=== PATIENT | male | born 2000 | race Two or more races ===

== ENCOUNTER 2024-11-14 22:11 | Inpatient (IN) | payer OTHER ==
[2024-11-13 12:34] VITALS: BP 134/86; PULSE 89; RESP 16; TEMP 98.9; O2SAT 93
[~2024-11-14] VITALS: Ht 172.7 cm; Wt 109.5 kg
--- NOTE | 2024-11-14 22:43 | ED.PDOC ---
History of Present Illness HPI Comments 24 y/o obese male presents with c/o chest pain, generalized bodyaches, cough, congestion, and rhinorrhea, today. Patient reports recent, unprovoked onset of intermittent, left-sided chest pain after having other aforementioned symptoms for the past 2x weeks. Patient states on pain being a 5/10 in severity. He endorses on having no significant past medical or surgical history, medication or substance use, or recent injuries, strenuous activities, or stressors at time of initial assessment. Patient denies any shortness of breath, palpitations, nausea, vomiting, fever, chills, or other associated symptoms or modifiers at this time. Chief Complaint: Chest Pain Time Seen by MD: 22:20 Reviewed Notes: Nurses Notes, Medications, Allergies Allergies: Coded Allergies: NO KNOWN ALLERGIES (Unverified , 11/14/24) Information Source: Patient Mode of Arrival: Ambulatory Severity: Moderate Timing: Weeks Duration: Intermittent Prehospital treatment: None Past Medical History Past Medical History (Other): obesity Surgical History: Denies all surgeries Family History Family History: Unknown Social History Smoker: Non-Smoker Alcohol: Denies ETOH Use Drugs: Denies Drug Use Lives In: Home All Other Systems: Reviewed and Negative (Comprehensive systems review obtained and negative except for what is stated in the HPI.) Physical Exam General Appearance: No Apparent Distress, Obese HEENT: Normal ENT Inspection, Pharynx Normal, TMs Normal Neck: Full Range of Motion, Non-Tender, Normal, Normal Inspection Respiratory: Chest Non-Tender, Lungs Clear, No Accessory Muscle Use, No Respiratory Distress, Normal Breath Sounds Cardiovascular: No Edema, No JVD, No Murmur, No Gallop, Normal Peripheral Pulses, Regular Rate/Rhythm Breast Exam: Deferred Gastrointestinal: No Organomegaly, Non Tender, No Pulsatile Mass, Normal Bowel Sounds, Soft Genitalia: Deferred Pelvic: Deferred Rectal: Deferred Extremities: No calf tenderness, Normal capillary refill, Normal inspection, Normal range of motion, Non-tender, No pedal edema Musculoskeletal : Apperance: Normal Neurologic: Alert, software integration developer II-XII nml as Tested, No Motor Deficits, Normal Affect, Normal Mood, No Sensory Deficits Cerebellar Function: Normal Reflexes: Normal Skin: Dry, Normal Color, Warm Lymphatic: No Adenopathy Was a procedure done? Was a procedure done?: No EKG EKG : Pulse Rate (adult): 94 Gilbert: Normal Cardiac Rhythm: NSR Block: None Hypertrophy: None ST: Normal Differential Dx Considerations may include: NM, ACS, PE, URI, viral syndrome, PNA, costochondritis, pericarditis, gastritis, anxiety, musculoskeletal pain, among others X-Ray, Labs, Meds, VS Vital Signs Date Time Temp Pulse Resp B/P (MAP) Pulse Ox O2 Delivery O2 Flow Rate FiO2 11/14/24 22:43 94 11/14/24 22:23 100.8 86 16 137/83 (101) 97 100.8 11/14/24 22:18 94 Lab Test 11/14/24 22:25 11/14/24 22:24 Range/Units Influenza Type A Antigen Positive Negative Influenza Type B Antigen Negative Negative SARS-CoV-2 Antigen (Rapid) Negative NEGATIVE White Blood Count 6.5 4.4-10.8 10^3/uL Red Blood Count 5.10 4.5-5.90 10^6/uL Hemoglobin 15.5 13.5-17.5 g/dL Hematocrit 45.6 41.0-53.0 % Mean Corpuscular Volume 89.4 80.0-100.0 fL Mean Corpuscular Hemoglobin 30.4 28.0-32.0 pg Mean Corpuscular Hemoglobin Concent 34.0 32.0-36.0 g/dL Red Cell Distribution Width 12.6 11.8-14.3 % Platelet Count 166 140-450 10^3/uL Mean Platelet Volume 11.3 H 6.9-10.8 fL Neutrophils (%) (Auto) 77.2 37.0-80.0 % Lymphocytes (%) (Auto) 12.4 10.0-50.0 % Monocytes (%) (Auto) 9.7 0.0-12.0 % Eosinophils (%) (Auto) 0.3 0.0-7.0 % Basophils (%) (Auto) 0.4 0.0-2.0 % Neutrophils # (Auto) 5.0 1.6-8.6 10 ^3/uL Lymphocytes # (Auto) 0.8 0.4-5.4 10 ^3/uL Monocytes # (Auto) 0.6 0-1.3 10 ^3/uL Eosinophils # (Auto) 0 0-0.8 10 ^3/uL Basophils # (Auto) 0 0-0.2 10 ^3/uL Nucleated Red Blood Cells 0.1 % Sodium Level 132 L 136-145 mmol/L Potassium Level 3.7 3.5-5.1 mmol/L Chloride Level 96 L 98-107 mmol/L Carbon Dioxide Level 27 20-31 mmol/L Anion Gap 9 5-15 Blood Urea Nitrogen 9 9-23 mg/dL Creatinine 1.09 0.700-1.30 mg/dL Glomerular Filtration Rate Calc 96 >90 mL/min BUN/Creatinine Ratio 8.3 L 10.0-20.0 Serum Glucose 488 *H 74-106 mg/dL Calcium Level 10.2 8.7-10.4 mg/dL Troponin I High Sensitivity 3 L </=54 ng/L Time of 1ST Reevaluation: 22:50 Reevaluation 1ST: Unchanged Patient Education/Counseling: Diagnosis, Treatment Family Education/Counseling: No Family Present Additional Information Previous visit documents reviewed: n/a The following tests were ordered, and results were reviewed by me: CXR, Covid19/Rapid Influenza A/B tests, CBC, BMP, EKG, troponin Additional Information was gathered from interviewing the following independent historians: n/a I reviewed and agreed with the following test results read by other providers: CXR I discussed treatment and results with medical personnel and: Patient Departure 1 Departure Time of Disposition: 23:23 (Patient with new onset diabetes. We will admit patient for further workup) Impression: Primary Impression: Diabetes mellitus, new onset Additional Impressions: Acute chest pain Generalized weakness Disposition: ADMITTED INPATIENT Admit to: Med Surg Condition: Serious Critical Care Note Critical Care Time?: No Stability Stability form required: No Heart Score Heart Score: Heart Score Response (Comments) Value History Slightly Suspicious 0 EKG Normal 0 Age <45 0 Risk Factors No known risk factors 0 Troponin Normal limit 0 Total 0 I personally scribed for ROMELIA DEUTSCH MD ([email or web address]) on 11/14/24 at 22:43. Electronically submitted by Rehan Perera ([email or web address]). ROMELIA DEUTSCH MD Nov 14, 2024 22:43
[2024-11-14 22:52] LABS: Basophils # (auto) 0 10 ^3/uL (0-0.2); Basophils % (auto) 0.4 % (0.0-2.0); Eosinophils # (auto) 0 10 ^3/uL (0-0.8); Eosinophils % (auto) 0.3 % (0.0-7.0); Hematocrit 45.6 % (41.0-53.0); Hemoglobin 15.5 g/dL (13.5-17.5); Lymphocytes # (auto) 0.8 10 ^3/uL (0.4-5.4); Lymphocytes % (auto) 12.4 % (10.0-50.0); Mean Corpuscular Hemoglobin 30.4 pg (28.0-32.0); Mean Corpuscular Volume 89.4 fL (80.0-100.0); Monocytes # (auto) 0.6 10 ^3/uL (0-1.3); Monocytes % (auto) 9.7 % (0.0-12.0); Neutrophils % (auto) 77.2 % (37.0-80.0); Nucleated Red Blood Cells % 0.1 %; Platelet Count (auto) 166 10^3/uL (140-450); Red Cell Distribution Width 12.6 % (11.8-14.3); White Blood Cell 6.5 10^3/uL (4.4-10.8)
[2024-11-14 23:02] LABS: Anion Gap 9 (5-15); Carbon Dioxide 27 mmol/L (20-31); Chloride 96 mmol/L (98-107); Potassium 3.7 mmol/L (3.5-5.1); Sodium 132 mmol/L (136-145)
[2024-11-14 23:03] LABS: Calcium 10.2 mg/dL (8.7-10.4)
[2024-11-14 23:08] LABS: BUN/Creatinine Ratio 8.3 (10.0-20.0); Blood Urea Nitrogen 9 mg/dL (9-23)
[2024-11-14 23:14] LABS: Glucose 488 mg/dL (74-106)
[2024-11-14 23:16] LABS: COVID19 ANTIGEN SOFIA FIA NEGATIVE (NEGATIVE)
[2024-11-14 23:20] LABS: Rapid Influenza A Positive (Negative); Rapid Influenza B Negative (Negative)
--- NOTE | 2024-11-14 23:23 | DVH ---
CHEST RADIOGRAPH Indication: cough Technique: Single frontal view of the chest was obtained COMPARISON: None FINDINGS: Lines and Tubes: None Lungs: Clear Pleura: No effusion. No pneumothorax. Cardiomediastinal contours: Unremarkable Bones: Unremarkable IMPRESSION: No abnormality demonstrated.
[2024-11-14] MEDS: SODIUM CHLORIDE 0.9% 1,000 ML IV ONE (23:35)
[2024-11-14 23:36] VITALS: PULSE 83; RESP 20; O2SAT 93
[2024-11-15] VITALS (11 sets, daily range): BP systolic 116–134; BP diastolic 67–86; PULSE 76–93; RESP 16–20; TEMP 98.3–101.1; O2SAT 93–97
[2024-11-15] MEDS ORDERED: MORPHINE SULFATE INJ 2 MG/ml SYRG IV PRN
[2024-11-15] MEDS ORDERED: ALBUTEROL SULF 2.5 MG/0.5ML(0.5%) NEB SOLN NEB PRN
[2024-11-15] MEDS ORDERED: ONDANSETRON HCL 4 MG/2 ML VIAL IV PRN
[2024-11-15] MEDS ORDERED: guaiFENesin-DM 100/10mg/5ml SYR PO PRN
[2024-11-15] MEDS ORDERED: NITROGLYCERIN 0.4 MG SL TAB SL PRN
[2024-11-15] MEDS: ACCU-CHEK COMFORT CURVE STRIP VI SCH ×2 (00:50→16:41)
[2024-11-15] MEDS: InsuLIN REG 1unit/0.01ml Soln (100units/ml) SC SCH ×2 (00:53→17:01)
--- NOTE | 2024-11-15 01:04 | DVHHP2 ---
History of Present Illness Reason for Visit: Generalized body aches History of Present Illness 24-year-old male presents for evaluation of generalized body aches. Patient reports a two week history of having generalized body aches with associated cough, and intermittent fever. Denies abdominal pain, nausea or vomiting. He does not do have a blood sugar of greater than 400. Past Medical History Denies Past Surgical History Denies Family History Noncontributory Smoke: No ALCOHOL: none Drugs: None Lives: with Family Review of Systems Review of Systems Review of systems are currently negative otherwise addressed in HPI. Allergies: Coded Allergies: NO KNOWN ALLERGIES (Unverified , 11/14/24) Medications Current Medications Medications Dose Ordered Sig/Eliazar Route Start Time Stop Time Status Last Admin Dose Admin Nitroglycerin 0.4 mg Q5MINP PRN SL 11/15/24 00:00 Morphine Sulfate 2 mg Q30M PRN IV 11/15/24 00:00 Oseltamivir Phosphate 75 mg Q12HR PO 11/15/24 10:00 11/20/24 09:59 Albuterol 2.5 mg Q6HPRN PRN NEB 11/15/24 00:00 Guaifenesin/ Dextromethorphan 10 ml Q4HP PRN PO 11/15/24 00:00 Diagnostic Test (Pha) 1 strip IQ4HR 11/15/24 00:00 11/15/24 00:50 1 STRIP Insulin Human Regular IQ4HR SC 11/15/24 00:00 11/15/24 00:53 10 UNITS Dextrose 50 ml UD PRN IV 11/15/24 00:00 Ondansetron HCl 4 mg Q4HP PRN IV 11/15/24 00:00 Acetaminophen 650 mg Q6HP PRN PO 11/15/24 00:00 Exam Vital Signs Vital Signs Date Time Temp Pulse Resp B/P (MAP) Pulse Ox O2 Delivery O2 Flow Rate FiO2 11/15/24 00:29 94 Room Air 11/15/24 00:29 0 21 11/15/24 00:25 97.6 84 14 130/74 (92) 97.6 Exam Gen: 24-year-old male in mild distress Skin: Warm, dry, normal color and texture, no rash. HEENT: Normocephalic atraumatic, mucous membranes moist and pink. Neck: Cervical and supraclavicular nodes normal without enlargement, trachea is midline, thyroid gland is normal without masses. Pulmonary: Diminished breath sounds Cardiac: Regular rate and rhythm. No murmur Abdomen: Soft, nontender, nondistended, bowel sounds present all 4 quadrants, no guarding, no rigidity, no organomegaly. Extremities: No cyanosis, clubbing, no edema Neuro: Cranial nerves II through XII grossly intact, normal affect and speech, no focal motor deficits. Labs/Xrays ORDERING PHYSICIAN: ROMELIA DEUTSCH MD PROCEDURE(s): CXRP - CHEST PORTABLE REASON: cough ORDER NUMBER(s): [id number], ACCESSION NUMBER(s): [id number] CHEST RADIOGRAPH Indication: cough Technique: Single frontal view of the chest was obtained COMPARISON: None FINDINGS: Lines and Tubes: None Lungs: Clear Pleura: No effusion. No pneumothorax. Cardiomediastinal contours: Unremarkable Bones: Unremarkable IMPRESSION: No abnormality demonstrated. Labs Test 11/15/24 00:41 11/14/24 23:31 11/14/24 22:25 11/14/24 22:24 Range/Units POC Glucose 405 *H 70-106 mg/dl Troponin I High Sensitivity 3 L </=54 ng/L Influenza Type A Antigen Positive Negative Influenza Type B Antigen Negative Negative SARS-CoV-2 Antigen (Rapid) Negative NEGATIVE White Blood Count 6.5 4.4-10.8 10^3/uL Red Blood Count 5.10 4.5-5.90 10^6/uL Hemoglobin 15.5 13.5-17.5 g/dL Hematocrit 45.6 41.0-53.0 % Mean Corpuscular Volume 89.4 80.0-100.0 fL Mean Corpuscular Hemoglobin 30.4 28.0-32.0 pg Mean Corpuscular Hemoglobin Concent 34.0 32.0-36.0 g/dL Red Cell Distribution Width 12.6 11.8-14.3 % Platelet Count 166 140-450 10^3/uL Mean Platelet Volume 11.3 H 6.9-10.8 fL Neutrophils (%) (Auto) 77.2 37.0-80.0 % Lymphocytes (%) (Auto) 12.4 10.0-50.0 % Monocytes (%) (Auto) 9.7 0.0-12.0 % Eosinophils (%) (Auto) 0.3 0.0-7.0 % Basophils (%) (Auto) 0.4 0.0-2.0 % Neutrophils # (Auto) 5.0 1.6-8.6 10 ^3/uL Lymphocytes # (Auto) 0.8 0.4-5.4 10 ^3/uL Monocytes # (Auto) 0.6 0-1.3 10 ^3/uL Eosinophils # (Auto) 0 0-0.8 10 ^3/uL Basophils # (Auto) 0 0-0.2 10 ^3/uL Nucleated Red Blood Cells 0.1 % Sodium Level 132 L 136-145 mmol/L Potassium Level 3.7 3.5-5.1 mmol/L Chloride Level 96 L 98-107 mmol/L Carbon Dioxide Level 27 20-31 mmol/L Anion Gap 9 5-15 Blood Urea Nitrogen 9 9-23 mg/dL Creatinine 1.09 0.700-1.30 mg/dL Glomerular Filtration Rate Calc 96 >90 mL/min BUN/Creatinine Ratio 8.3 L 10.0-20.0 Serum Glucose 488 *H 74-106 mg/dL Calcium Level 10.2 8.7-10.4 mg/dL Assessment/Plan Assessment/Plan Assessment Uncontrolled diabetes mellitus, new onset Influenza Plan Admit the patient to [facility] to the hospitalist [facility] Diabetic teaching Q.4 hour Accu-Cheks with mild insulin coverage Continue treatment per orders. Plan discussed with: Patient My Orders Orders - YAMILET SEYMOUR AGACNP Procedure Category Date Status Time Admit ADMIT 11/14/24 Transmitted 23:57 Nitroglycerin PHA 11/15/24 In Process Sublingual (Ntrostat 00:00 Morphine Sulfate PHA 11/15/24 In Process Injection 00:00 Stat Ekg For Chest ARLENE 11/14/24 In Process Pain 23:57 Notify Of Changes ARLENE 11/14/24 In Process From Base 23:57 Mixing And Dispensing Supervisor For ARLENE 11/14/24 In Process 24 Hours 23:57 Emergency Dysrhythmia ARLENE 11/14/24 In Process Protocol 23:57 Rhythm Strips Once ARLENE 11/14/24 In Process Every Shift 23:57 Oxygen By Nasal RT 11/14/24 Transmitted Cannula 23:57 Consistent DIET 11/15/24 Transmitted Carb(Ccho)Diabetes Breakfast *Rn Electronic Musical Instrument Repairer REFER 11/14/24 Transmitted Referral 23:58 Oseltamivir 75mg PHA 11/15/24 In Process Capsule (Tamiflu 75mg 10:00 Albuterol Medneb PHA 11/15/24 In Process (Ventolin Medneb) 00:00 Guaifenesin-Dextromet PHA 11/15/24 In Process Liquid (Robitussin 00:00 Basic Metabolic Panel LAB 11/15/24 Logged 04:00 Glucose Blood PHA 11/15/24 In Process (Accu-Chek Comfort 00:00 Insulin R (Human) PHA 11/15/24 In Process (Insulin R) 00:00 Dextrose 50% Syringe PHA 11/15/24 In Process 00:00 Ondansetron Hcl PHA 11/15/24 In Process (Zofran) 00:00 Complete Blood Count LAB 11/15/24 Logged 04:00 Condition: Stable ARLENE 11/14/24 In Process 23:58 Acetaminophen Tablet PHA 11/15/24 In Process (Tylenol Tablet) 00:00 Bedrest With Bathroom ARLENE 11/14/24 In Process Privileg 23:58 Hemoglobin A1c LAB 11/15/24 Logged 00:56 Date of Service: Nov 14, 2024 Billing Provider: YAMILET SEYMOUR Common Visit Codes: [id number] INP/OBS CARE (HIGH) YAMILET SEYMOUR Nov 15, 2024 01:04
[2024-11-15 05:17] LABS: Basophils # (auto) 0 10 ^3/uL (0-0.2); Basophils % (auto) 0.1 % (0.0-2.0); Eosinophils # (auto) 0 10 ^3/uL (0-0.8); Eosinophils % (auto) 0.1 % (0.0-7.0); Hematocrit 41.6 % (41.0-53.0); Hemoglobin 14.4 g/dL (13.5-17.5); Lymphocytes % (auto) 16.4 % (10.0-50.0); Mean Corpuscular Hemoglobin 30.9 pg (28.0-32.0); Mean Corpuscular Hgb Conc. 34.5 g/dL (32.0-36.0); Mean Corpuscular Volume 89.6 fL (80.0-100.0); Monocytes # (auto) 0.8 10 ^3/uL (0-1.3); Monocytes % (auto) 12.6 % (0.0-12.0); Neutrophils # (auto) 4.5 10 ^3/uL (1.6-8.6); Neutrophils % (auto) 70.8 % (37.0-80.0); Nucleated Red Blood Cells % 0.1 %; Platelet Count (auto) 165 10^3/uL (140-450); Red Blood Cells 4.65 10^6/uL (4.5-5.90); White Blood Cell 6.3 10^3/uL (4.4-10.8)
[2024-11-15 05:18] LABS: Chloride 101 mmol/L (98-107); Potassium 3.8 mmol/L (3.5-5.1)
[2024-11-15 05:19] LABS: Anion Gap 8 (5-15); Calcium 9.5 mg/dL (8.7-10.4); Carbon Dioxide 27 mmol/L (20-31)
[2024-11-15 05:22] LABS: Sodium 136 mmol/L (136-145)
[2024-11-15 05:24] LABS: BUN/Creatinine Ratio 8.5 (10.0-20.0)
[2024-11-15 05:26] LABS: Blood Urea Nitrogen 8 mg/dL (9-23); Glucose 298 mg/dL (74-106)
--- NOTE | 2024-11-15 07:06 | ECG ---
[facility] Test Date: 2024-11-14 Test Time: 23:12:02 Pat Name: SHERIN DUBOSE Department: ED Room: [facility] Gender: M Mine Promotor: VETO : 2000 Requested By: EMERGENCY EMERGENCY Order Number: [id number] Reading MD: Measurements Intervals [place] Rate: 98 P: 84 NC: 147 QRS: 3 QRSD: 107 T: 2 QT: 328 QTc: 419 Interpretive Statements Sinus rhythm ST elev, probable normal early repol pattern Please click the below link to view image of tracing.
[2024-11-15] MEDS: OSELTAMIVIR 75 MG CAP PO SCH (11:00)
--- NOTE | 2024-11-15 13:17 | ECG ---
[facility] Test Date: 2024-11-14 Test Time: 22:18:38 Pat Name: SHERIN DUBOSE Department: ER Room: 0236 Gender: M Paper Mill Manager: ELISEO : 2000 Requested By: EMERGENCY EMERGENCY Order Number: [id number] Reading MD: Measurements Intervals [place] Rate: 94 P: 77 IN: 150 QRS: 1 QRSD: 110 T: 5 QT: 341 QTc: 427 Interpretive Statements Sinus rhythm ST elev, probable normal early repol pattern Please click the below link to view image of tracing.
[2024-11-15 13:56] LABS: Triglycerides 80 mg/dL (< 150)
[2024-11-15 13:58] LABS: Cholesterol 188 mg/dL (< 200); HDL Cholesterol 44 mg/dL (40-59)
--- NOTE | 2024-11-15 13:58 | DVHPN2 ---
Subjective Patient reports that his symptoms have improved. Reviewed: Care Plan, H&P, Labs, Medications Changes from previous H/P or p: No Changes General: Per HPI Objective Vitals Vital Signs Date Time Temp Pulse Resp B/P (MAP) Pulse Ox O2 Delivery O2 Flow Rate FiO2 11/15/24 13:00 98.9 89 20 134/86 (102) 93 98.9 11/15/24 10:00 Room Air* 0 21 Intake/Output Intake and Output 11/15/24 07:00 Intake Total 1000 ml Balance 1000 ml Intake IV Total 1000 ml General Appearance: Alert, Oriented X3, Cooperative, mild distress HEENT: Atraumatic, PERRLA Lungs: Clear to auscultation, Normal air movement Cardiovascular: Normal S1, Normal S2 Abdomen: Normal bowel sounds, Soft, No tenderness, No hepatospenomegaly Genitourinary: No Apparent Abnormalities Musculoskeletal: Normal sensory function, Normal motor function Extremities: No clubbing, No cyanosis, No edema, Normal pulses, No tenderness/swelling Neuro: Normal gait, Normal speech Skin: Dry, Intact Psych/Mental Status: Mental status NL, Mood NL Medications Current Medications Medications Dose Ordered Sig/Eliazar Route Start Time Stop Time Status Last Admin Dose Admin Nitroglycerin 0.4 mg Q5MINP PRN SL 11/15/24 00:00 Morphine Sulfate 2 mg Q30M PRN IV 11/15/24 00:00 Oseltamivir Phosphate 75 mg Q12HR PO 11/15/24 10:00 11/20/24 09:59 11/15/24 11:00 75 MG Albuterol 2.5 mg Q6HPRN PRN NEB 11/15/24 00:00 Guaifenesin/ Dextromethorphan 10 ml Q4HP PRN PO 11/15/24 00:00 Diagnostic Test (Pha) 1 strip IQ4HR 11/15/24 00:00 11/15/24 12:01 1 STRIP Insulin Human Regular IQ4HR SC 11/15/24 00:00 11/15/24 12:01 6 UNITS Dextrose 50 ml UD PRN IV 11/15/24 00:00 Ondansetron HCl 4 mg Q4HP PRN IV 11/15/24 00:00 Acetaminophen 650 mg Q6HP PRN PO 11/15/24 00:00 Metformin HCl 500 mg BIDWM PO 11/15/24 18:00 Laboratory Results Laboratory Tests 11/15/24 05:00 Chemistry Test 11/14/24 22:24 11/15/24 05:00 Calcium Level 10.2 mg/dL (8.7-10.4) 9.5 mg/dL (8.7-10.4) Lipid panel Test 11/15/24 05:00 Cholesterol Level Pending HDL Cholesterol Pending Triglycerides Level Pending HgA1c, TSH Test 11/14/24 22:24 Hemoglobin A1c 13.6 % A1C (<5.7) H Labs and/or images reviewed: Labs reviewed by me, Image(s) reviewed by me Assessment/Plan Assessment/Plan Impression: -influenza A -obesity -hyperglycemia -new diagnosis of DM type 2 Plan: -diabetic education by nursing staff as well as dietitian -regular insulin sliding scale -start metformin 500 mg p.o. b.i.d. -continue Tamiflu -DC planning for tomorrow Total time spent with patient discussing and formulating plan of care: 35 minutes. This medical document was created using an electronic medical record system with Yelago dictation system. Although this document has been carefully reviewed, there may still be some phonetic and typographical errors. These areas are purely typographical due to imperfections of the software programs, and do not reflect any compromise in the patient's medical care. Plan discussed with: Patient, Other (RN) My Orders Orders - BONIFACIO CHAPMAN NP Procedure Category Date Status Time Lipid Panel LAB 11/15/24 In Process 13:06 Metformin PHA 11/15/24 In Process Hydrochloride 18:00 Glucose Blood PHA 11/15/24 Verified (Accu-Chek Comfort 17:00 Mild Sliding Scale PHA 11/15/24 Verified 17:00 Date of Service: Nov 15, 2024 Billing Provider: BONIFACIO CHAPMAN NP Common Visit Codes: [id number] INP/OBS CARE(HIGH) BONIFACIO CHAPMAN NP Nov 15, 2024 13:58
[2024-11-15] MEDS ORDERED: DEXTROSE (50%) 50ML SYRG IV PRN ×2 (14:00)
[2024-11-15 14:01] LABS: LDL Cholesterol 136 mg/dL (< 100)
[2024-11-15] MEDS: metFORMIN HYDROCHLORIDE 500 MG TAB PO SCH (17:01)
[2024-11-15 20:13] LABS: Urine Bacteria None Seen /hpf (None Seen)
[2024-11-15 20:26] LABS: Urine Blood Negative /uL (Negative); Urine Budding Yeast OCCASIONAL /hpf (None Seen); Urine Clarity Clear (Clear); Urine Color Yellow (Yellow); Urine Protein, UAD Negative (Negative); Urine Specific Gravity 1.046 (1.001-1.035); Urine Squamous Epithelial Cell FEW /hpf (<5); Urine Urobilinogen Normal (Negative); Urine WBC 1 /HPF (0-3); Urine pH 5.5 (5.0-9.0)
[2024-11-15] MEDS: ACETAMINOPHEN 325 MG TAB PO PRN (21:53)
[2024-11-16 01:00] VITALS: BP 136/76; PULSE 74; RESP 18; TEMP 98.5; O2SAT 96
[2024-11-16 05:00] VITALS: BP 132/76; PULSE 64; RESP 18; TEMP 98.5; O2SAT 96
[2024-11-16 08:14] VITALS: O2SAT 96
[2024-11-16 09:00] VITALS: BP 122/88; PULSE 94; RESP 17; TEMP 98.6; O2SAT 94
[2024-11-16] MEDS ORDERED: BLOO1KIT60 XX (12:56)
[2024-11-16] MEDS ORDERED: METF-370 PO (12:56)
[2024-11-16] MEDS ORDERED: LANC-347 XX (12:56)
[2024-11-16] MEDS ORDERED: TAMIFLU PO (12:59)
[2024-11-16 13:00] VITALS: BP 118/70; PULSE 76; RESP 17; TEMP 98.7; O2SAT 95
--- NOTE | 2024-11-16 13:47 | DVHDS2 ---
Discharge Summary Date of Admission Nov 14, 2024 at 23:57 Date of Discharge: Nov 16, 2024 Admitting Diagnosis New onset diabetes mellitus with hyperglycemia Labs/Diagnostic Data: Laboratory Results Test 11/16/24 10:50 11/15/24 12:05 11/15/24 05:00 11/14/24 23:31 POC Glucose 252 mg/dl (70-106) Urine Color Yellow (Yellow) Urine Clarity Clear (Clear) Urine pH 5.5 (5.0-9.0) Urine Specific [place] 1.046 (1.001-1.035) Urine Protein Negative (Negative) Urine Ketones 2+ (Negative) Urine Blood Negative /uL (Negative) Urine Nitrite Negative (Negative) Urine Bilirubin Negative (Negative) Urine Urobilinogen Normal mg/dL (Negative) Urine Leukocyte Esterase Negative /uL (Negative) Urine RBC 1 /hpf (0 - 3) Urine Microscopic WBC 1 /HPF (0-3) Urine Squamous Epithelial Cells Few /hpf (<5) Urine Bacteria None seen /hpf (None Seen) Urine Yeast (Budding) Occasional /hpf (None Urine Glucose 4+ mg/dL (Normal) White Blood Count 6.3 10^3/uL (4.4-10.8) Red Blood Count 4.65 10^6/uL (4.5-5.90) Hemoglobin 14.4 g/dL (13.5-17.5) Hematocrit 41.6 % (41.0-53.0) Mean Corpuscular Volume 89.6 fL (80.0-100.0) Mean Corpuscular Hemoglobin 30.9 pg (28.0-32.0) Mean Corpuscular Hemoglobin Concent 34.5 g/dL (32.0-36.0) Red Cell Distribution Width 13.0 % (11.8-14.3) Platelet Count 165 10^3/uL (140-450) Mean Platelet Volume 11.0 fL (6.9-10.8) Neutrophils (%) (Auto) 70.8 % (37.0-80.0) Lymphocytes (%) (Auto) 16.4 % (10.0-50.0) Monocytes (%) (Auto) 12.6 % (0.0-12.0) Eosinophils (%) (Auto) 0.1 % (0.0-7.0) Basophils (%) (Auto) 0.1 % (0.0-2.0) Neutrophils # (Auto) 4.5 10 ^3/uL (1.6-8.6) Lymphocytes # (Auto) 1.0 10 ^3/uL (0.4-5.4) Monocytes # (Auto) 0.8 10 ^3/uL (0-1.3) Eosinophils # (Auto) 0 10 ^3/uL (0-0.8) Basophils # (Auto) 0 10 ^3/uL (0-0.2) Nucleated Red Blood Cells 0.1 % Sodium Level 136 mmol/L (136-145) Potassium Level 3.8 mmol/L (3.5-5.1) Chloride Level 101 mmol/L (98-107) Carbon Dioxide Level 27 mmol/L (20-31) Anion Gap 8 (5-15) Blood Urea Nitrogen 8 mg/dL (9-23) Creatinine 0.94 mg/dL (0.700-1.30) Glomerular Filtration Rate Calc 115 mL/min (>90) BUN/Creatinine Ratio 8.5 (10.0-20.0) Serum Glucose 298 mg/dL (74-106) Calcium Level 9.5 mg/dL (8.7-10.4) Triglycerides Level 80 mg/dL (< 150) Cholesterol Level 188 mg/dL (< 200) LDL Cholesterol 136 mg/dL (< 100) HDL Cholesterol 44 mg/dL (40-59) Troponin I High Sensitivity 3 ng/L (</=54) Test 11/14/24 22:25 11/14/24 22:24 Influenza Type A Antigen Positive (Negative) Influenza Type B Antigen Negative (Negative) SARS-CoV-2 Antigen (Rapid) Negative (NEGATIVE) Hemoglobin A1c 13.6 % A1C (<5.7) Other Laboratory Tests 11/15/24 05:00 Brief Hx & Hospital Course: History of Present Illness 24-year-old male presents for evaluation of generalized body aches. Patient reports a two week history of having generalized body aches with associated cough, and intermittent fever. Denies abdominal pain, nausea or vomiting. He does not do have a blood sugar of greater than 400. Course of hospitalization: Patient was treated with IV hydration, regular insulin sliding scale, as well as introduction of metformin 500 mg p.o. b.i.d.. Patient was blood sugars have improved. Patient was started on Tamiflu given positive influenza day. Patient was without oxygen requirements while in the hospital. Chest x-ray negative for any type of pneumonia. Patient will be discharged home after receiving diabetic education, as well as being continued with metformin 500 mg p.o. b.i.d.. He was instructed to check his blood sugars twice a day for which the nurse will instructed the patient on how to do so. Patient will keep a log and follow up with the discharge Clinic in one week. He is agreeable with discharge plan. All questions answered. Physical examination General: Alert and Oriented x3. No acute distress. Well-nourished. Obese Eyes: EOMI. Anicteric. HENT: Moist mucous membranes. Lungs: Clear to auscultation bilaterally. No accessory muscle use. Cardiovascular: Regular rate and rhythm. No murmur. No JVD. Abdomen: Soft, non-tender and non-distended. No palpable masses. Extremities: No edema. Non-tender. Skin: No rashes or lesions. Warm. Neurologic: No focal neurological deficits. CN II-XII grossly intact, but not individually tested. Psychiatric: Cooperative. Appropriate mood and affect. Total time spent with patient discussing and formulating plan of care: 35 minutes. This medical document was created using an electronic medical record system with [employer] dictation system. Although this document has been carefully reviewed, there may still be some phonetic and typographical errors. These areas are purely typographical due to imperfections of the software programs, and do not reflect any compromise in the patient's medical care. Condition at Discharge: Fair Final Diagnosis/Problems List Influenza A Hyperglycemia with new diagnosis of diabetes mellitus type 2 Discharge Disposition: Home Discharge Instruct/Medications Diet: Consistent carbohydrate Activity: No Restrictions, As Tolerated Follow Up/Referral: Discharge Clinic in one week Medications: Tamiflu 75 mg p.o. b.i.d. for additional four days Metformin 500 mg p.o. b.i.d. Check blood sugars twice a day 36 Discharge Statement: "Patient was advised to return to the ER or call 911 if any headaches, dizziness, shortness of breath, chest pain, abdominal pain, bleeding, fevers, or worsening of medical condition. Patient was counseled about treatment plan, medications, possible side effects, patientverbalized understanding. All questions were answered to the best of my ability. This discharge took greater then 30 minutes in planning, reviewing documentation, counseling the patient, and discussing with other team members." ASSESSMENT ASSESSMENT Assessment Influenza A Hyperglycemia with new diagnosis of diabetes mellitus type 2 Date of Service: Nov 16, 2024 Billing Provider: BONIFACIO CHAPMAN NP Common Visit Codes: [id number] DISCH DAY >30min BONIFACIO CHAPMAN NP Nov 16, 2024 13:47
[2024-11-16 16:16] VITALS: BP 118/70; PULSE 76; RESP 17; TEMP 98.7; O2SAT 95
== END 2024-11-16 17:30 | disposition home or self-care (01) | DRG 195 ==
LOC: ER 22:11 → OVERFLOW 23:57 → EAST 11-15 12:16
PROVIDERS: ADMIT Nurse Practitioner Acute Care; ATTEND Nurse Practitioner Acute Care
DX: J10.1 Influenza due to other identified influenza virus with other respiratory manifestations (principal); E11.65 Type 2 diabetes mellitus with hyperglycemia; E66.9 Obesity, unspecified; Z20.822 Contact with and (suspected) exposure to COVID-19; Z68.36 Body mass index [BMI] 36.0-36.9, adult
CPT/HCPCS: 36415; 71045; 80048; 80061; 81001; 82962; 83036; 84484; 85025; 87426; 87804; 93005; 96360; G0378; J1815

== ENCOUNTER 2024-11-23 07:52 | Emergency (ER) | payer OTHER ==
[~2024-11-23] VITALS: Ht 172.7 cm; Wt 76.9 kg
[~2024-11-23 07:52] MED LIST: BLOO1KIT60 XX; LANC-347 XX; METF-370 PO; TAMIFLU PO
[2024-11-23 09:03] LABS: Basophils # (auto) 0 10 ^3/uL (0-0.2); Basophils % (auto) 0.4 % (0.0-2.0); Eosinophils # (auto) 0.1 10 ^3/uL (0-0.8); Eosinophils % (auto) 1.2 % (0.0-7.0); Hematocrit 45.5 % (41.0-53.0); Lymphocytes # (auto) 2.2 10 ^3/uL (0.4-5.4); Lymphocytes % (auto) 24.1 % (10.0-50.0); Mean Corpuscular Hemoglobin 31.4 pg (28.0-32.0); Mean Corpuscular Hgb Conc. 35.1 g/dL (32.0-36.0); Mean Corpuscular Volume 89.4 fL (80.0-100.0); Monocytes # (auto) 0.5 10 ^3/uL (0-1.3); Neutrophils # (auto) 6.2 10 ^3/uL (1.6-8.6); Neutrophils % (auto) 68.3 % (37.0-80.0); Platelet Count (auto) 246 10^3/uL (140-450); Red Blood Cells 5.09 10^6/uL (4.5-5.90); Red Cell Distribution Width 12.6 % (11.8-14.3); White Blood Cell 9.1 10^3/uL (4.4-10.8)
[2024-11-23 09:13] LABS: Chloride 99 mmol/L (98-107); Potassium 4.1 mmol/L (3.5-5.1)
[2024-11-23 09:14] LABS: Anion Gap 8 (5-15); Carbon Dioxide 26 mmol/L (20-31); Sodium 133 mmol/L (136-145)
--- NOTE | 2024-11-23 09:14 | ED.PDOC ---
History of Present Illness HPI Comments 24 year old male presents to the ED with a chief complaint of anxiety onset 3 days. Patient states he has been taking Metformin medication for his diabetes, noticed he gets anxious shortly after taking medication. Since he stopped taking medication 3 days ago, he wakes up experiencing dizziness, headache, which has resolved at this time. PMHx DM. Denies any nausea, vomiting, diarrhea, chest pain, shortness of breath, fevers, chills. No other symptoms or modifying factors present at this time. Chief Complaint: Hyperglycemia Time Seen by MD: 09:02 Primary Care Provider: none Reviewed Notes: Medications, Allergies Allergies: Coded Allergies: NO KNOWN ALLERGIES (Unverified , 11/14/24) Home Meds Active Scripts Oseltamivir Phosphate (Tamiflu) 75 Mg Cap, 75 MG PO BID for 4 Days, #8 CAP Prov:BONIFACIO CHAPMAN NP 11/16/24 Blood Glucose Monitoring Suppl (D-Care Glucometer Kit/Glu W/Device) 1 Kit Kit, KIT XX BID, #1 Prov:BONIFACIO CHAPMAN NP 11/16/24 Lancets (Freestyle Lancets) Lancets Mis, BOX XX BID, #1 Prov:BONIFACIO CHAPMAN SPECIAL DELIVERY WORKER 11/16/24 Metformin Hydrochloride (Metformin Hcl) 500 Mg Tab, 1 TAB PO BID for 30 Days, #60 TAB 3 Refills Prov:BONIFACIO CHAPMAN NP 11/16/24 Information Source: Patient Mode of Arrival: Ambulatory Severity: Moderate Timing: Days Duration: Since onset Prehospital treatment: None Past Medical History PAST MEDICAL HISTORY: DM Surgical History: Denies all surgeries Family History Family History: Unknown Social History Smoker: Non-Smoker Alcohol: Denies ETOH Use Drugs: Denies Drug Use Lives In: Home Constitutional: denies: chills, diaphoresis, fatigue, fever, malaise, sweats, weakness, others EENTM: denies: blurred vision, double vision, ear bleeding, ear discharge, ear drainage, ear pain, ear ringing, eye pain, eye redness, hearing loss, mouth pain, mouth swelling, nasal discharge, nose bleeding, nose congestion, nose pain, photophobia, tearing, throat pain, throat swelling, voice changes, others Respiratory: denies: cough, hemoptysis, orthopnea, SOB at rest, shortness of b reath, SOB with excertion, stridor, wheezing, others Cardiovascular: denies: chest pain, dizzy spells, diaphoresis, Dyspnea on exertion, edema, irregular heart beat, left arm pain, lightheadedness, palpitations, PND, syncope, others Gastrointestinal: denies: abdomen distended, abdominal pain, blood streaked bowels, constipated, diarrhea, dysphagia, difficulty swallowing, hematemesis, melena, nausea, poor appetite, poor fluid intake, rectal bleeding, rectal pain, vomiting, others Genitourinary: denies: burning, dysuria, flank pain, frequency, hematuria, incontinence, penile discharge, penile sore, pain, testicle pain, testicle swelling, urgency, others Neurological: reports: dizziness, headache; denies: fainting, left sided numbness, left sided weakness, numbness, paresthesia, pre-existing deficit, right sided numbness, right sided weakness, seizure, speech problems, tingling, tremors, weakness, others Musculoskeletal: denies: back pain, gout, joint pain, joint swelling, muscle pain, muscle stiffness, neck pain, others Integumetry: denies: bruises, change in color, change in hair/nails, dryness, laceration, lesions, lumps, rash, wounds, others Allergic/Immunocompromised: denies: Difficulty Healing, Frequent Infections, Hives, Itching, others Hematologic/Lymphatic: denies: anemia, blood clots, easy bleeding, easy bruising, swollen glands, others Endocrine: denies: excessive hunger, excessive sweating, excessive thirst, excessive urination, flushing, intolerance to cold, intolerance to heat, unexplained weight gain, unexplained weight loss, others Psychiatric: reports: anxiety; denies: bipolar disorder, depression, hopeless, panic disorder, schizophrenia, sleepless, suicidal, others All Other Systems: Reviewed and Negative Physical Exam General Appearance: No Apparent Distress, Normal HEENT: Normal ENT Inspection, Pharynx Normal, TMs Normal Neck: Full Range of Motion, Non-Tender, Normal, Normal Inspection Respiratory: Chest Non-Tender, Lungs Clear, No Accessory Muscle Use, No Respiratory Distress, Normal Breath Sounds Cardiovascular: No Edema, No JVD, No Murmur, No Gallop, Normal Peripheral Pulses, Regular Rate/Rhythm Breast Exam: Deferred Gastrointestinal: No Organomegaly, Non Tender, No Pulsatile Mass, Normal Bowel Sounds, Soft Genitalia: Deferred Pelvic: Deferred Rectal: Deferred Extremities: No calf tenderness, Normal capillary refill, Normal inspection, Normal range of motion, Non-tender, No pedal edema Musculoskeletal : Apperance: Normal Neurologic: Alert, groundskeeping yardman II-XII nml as Tested, No Motor Deficits, Normal Affect, Normal Mood, No Sensory Deficits Cerebellar Function: Normal Reflexes: Normal Skin: Dry, Normal Color, Warm Lymphatic: No Adenopathy Was a procedure done? Was a procedure done?: No Differential Dx Considerations may include: Anxiety, depression, electrolyte abnormalities X-Ray, Labs, Meds, VS Vital Signs Date Time Temp Pulse Resp B/P (MAP) Pulse Ox O2 Delivery O2 Flow Rate FiO2 11/23/24 09:26 60 17 96 Room Air 11/23/24 09:26 98.1 60 17 117/74 (88) 96 98.1 11/23/24 08:19 97.6 64 19 139/86 (103) 99 97.6 Lab Test 11/23/24 10:30 11/23/24 08:43 11/23/24 08:18 Range/Units Urine Color Light-yellow Yellow Urine Clarity Clear Clear Urine pH 5.5 5.0-9.0 Urine Specific [place] 1.040 H 1.001-1.035 Urine Protein Negative Negative Urine Ketones Negative Negative Urine Blood Negative Negative /uL Urine Nitrite Negative Negative Urine Bilirubin Negative Negative Urine Urobilinogen Normal Negative mg/dL Urine Leukocyte Esterase Negative Negative /uL Urine RBC 1 0 - 3 /hpf Urine Microscopic WBC < 1 0-3 /HPF Urine Squamous Epithelial Cells Few <5 /hpf Urine Bacteria None seen None Seen /hpf Urine Glucose 4+ H Normal mg/dL White Blood Count 9.1 4.4-10.8 10^3/uL Red Blood Count 5.09 4.5-5.90 10^6/uL Hemoglobin 16.0 13.5-17.5 g/dL Hematocrit 45.5 41.0-53.0 % Mean Corpuscular Volume 89.4 80.0-100.0 fL Mean Corpuscular Hemoglobin 31.4 28.0-32.0 pg Mean Corpuscular Hemoglobin Concent 35.1 32.0-36.0 g/dL Red Cell Distribution Width 12.6 11.8-14.3 % Platelet Count 246 140-450 10^3/uL Mean Platelet Volume 11.2 H 6.9-10.8 fL Neutrophils (%) (Auto) 68.3 37.0-80.0 % Lymphocytes (%) (Auto) 24.1 10.0-50.0 % Monocytes (%) (Auto) 6.0 0.0-12.0 % Eosinophils (%) (Auto) 1.2 0.0-7.0 % Basophils (%) (Auto) 0.4 0.0-2.0 % Neutrophils # (Auto) 6.2 1.6-8.6 10 ^3/uL Lymphocytes # (Auto) 2.2 0.4-5.4 10 ^3/uL Monocytes # (Auto) 0.5 0-1.3 10 ^3/uL Eosinophils # (Auto) 0.1 0-0.8 10 ^3/uL Basophils # (Auto) 0 0-0.2 10 ^3/uL Nucleated Red Blood Cells 0.0 % Sodium Level 133 L 136-145 mmol/L Potassium Level 4.1 3.5-5.1 mmol/L Chloride Level 99 98-107 mmol/L Carbon Dioxide Level 26 20-31 mmol/L Anion Gap 8 5-15 Blood Urea Nitrogen 14 9-23 mg/dL Creatinine 0.95 0.700-1.30 mg/dL Glomerular Filtration Rate Calc 113 >90 mL/min BUN/Creatinine Ratio 14.7 10.0-20.0 Serum Glucose 395 H 74-106 mg/dL Calcium Level 9.8 8.7-10.4 mg/dL POC Glucose 383 H 70-106 mg/dl Time of 1ST Reevaluation: 09:32 Reevaluation 1ST: Unchanged Patient Education/Counseling: Diagnosis, Treatment, Prognosis Family Education/Counseling: No Family Present Additional Information The following tests were ordered, and results were reviewed by me: BMP, CBC, UA I discussed treatment and results with medical personnel and: Patient Comprehensive systems review obtained and negative except for what is stated in the HPI. Departure 1 Departure Time of Disposition: 19:57 (Patient presenting with concerns for abnormal labs and anxiety. Patient eloped prior to workup completion) Impression: Primary Impression: Anxiety reaction Additional Impression: Hyperglycemia Disposition: 07 LEFT AWOL/ELOPED Condition: Serious Critical Care Note Critical Care Time?: No Stability Stability form required: No I personally scribed for ROMELIA DEUTSCH MD ([email or web address]) on 11/23/24 at 09:13. Electronically submitted by Yanelis Ocasio ([email or web address]). I personally scribed for ROMELIA DEUTSCH MD ([email or web address]) on 11/23/24 at 09:24. Electronically submitted by Yanelis Ocasio ([email or web address]). ROMELIA DEUTSCH MD Nov 23, 2024 09:13
[2024-11-23 09:15] LABS: Calcium 9.8 mg/dL (8.7-10.4)
[2024-11-23 09:19] LABS: BUN/Creatinine Ratio 14.7 (10.0-20.0); Blood Urea Nitrogen 14 mg/dL (9-23)
[2024-11-23 09:22] LABS: Glucose 395 mg/dL (74-106)
[2024-11-23 09:26] VITALS: BP 117/74; PULSE 60; RESP 17; TEMP 98.1; O2SAT 96
[2024-11-23 11:01] LABS: Urine Bacteria None Seen /hpf (None Seen)
[2024-11-23 11:19] LABS: Urine Blood Negative /uL (Negative); Urine Clarity Clear (Clear); Urine Color Light-Yellow (Yellow); Urine Protein, UAD Negative (Negative); Urine Squamous Epithelial Cell FEW /hpf (<5); Urine Urobilinogen Normal (Negative); Urine WBC < 1 /HPF (0-3); Urine pH 5.5 (5.0-9.0)
[2024-11-23] MEDS ORDERED: SODIUM CHLORIDE 0.9% 2,000 ML IV ONE (13:15)
[2024-11-23] MEDS ORDERED: ONDANSETRON HCL 4 MG/2 ML VIAL IV ONE (13:15)
== END 2024-11-23 14:13 | disposition left against medical advice (07) ==
LOC: ER 07:52
DX: F41.1 Generalized anxiety disorder (principal); E11.65 Type 2 diabetes mellitus with hyperglycemia; Z79.84 Long term (current) use of oral hypoglycemic drugs; Z79.899 Other long term (current) drug therapy
CPT/HCPCS: 36415; 80048; 81001; 82947; 82962; 85025